=== PATIENT | female | born 1990 | race Hispanic/Latino ===

== ENCOUNTER 2020-06-28 10:48 | Inpatient (IN) | payer MEDICAID, OTHER ==
[2020-06-28] MEDS ORDERED: LIDOCAINE (2%) 20 MG/1 ML VIAL 20 ML MDV INFILTRATI NR (12:25)
[2020-06-28] MEDS ORDERED: TERBUTALINE 1 MG/1 ML INJ SUB-Q PRN (12:25)
[2020-06-28] MEDS ORDERED: CARBOPROST TROMETHAMINE 250 MCG/1 ML INJ IM PRN (12:25)
[2020-06-28] MEDS ORDERED: OXYTOCIN 10 UNIT/1 ML INJ IM PRN (12:25)
[2020-06-28] MEDS ORDERED: miSOPROStol 200 MCG TAB PR PRN (12:25)
[2020-06-28] MEDS ORDERED: ONDANSETRON 4 MG/2 ML INJ IV PRN (12:25)
[2020-06-28] MEDS ORDERED: NalbUPHINE 10 MG/1 ML INJ IV PRN ×2 (12:25→14:49)
[2020-06-28] MEDS ORDERED: METHYLERGONOVINE MALEATE 0.2 MG/ML VIAL IM PRN (12:25)
[2020-06-28] MEDS ORDERED: ACETAMINOPHEN 325 MG TAB PO PRN (12:25)
[2020-06-28] MEDS ORDERED: fentaNYL 100 MCG/2 ML INJ IV PRN (12:25)
[2020-06-28] MEDS ORDERED: ePHEDrine SULFATE 50 MG/1 ML INJ IV PRN ×2 (12:25→14:49)
[2020-06-28] MEDS ORDERED: LACTATED RINGERS 1,000 ML IV SCH (12:30)
--- NOTE | 2020-06-28 12:35 | History and Physical Report ---
History of Present Illness Date of examination: 06/28/20 (active labor @ 39w) Chief complaint: worsening ctx since 0430 this AM History of present illness: EDC Calculations LMP: 06/30/2020 EDC Confirmation: 06/30/2020 Gestational Age: 39w5d Past History : 2 Term Births: 0 Premature Births: 0 Living Children: 0 Para: 0 Mult. Births: 0 Prev : 0 Prev. attempt? 0 Aborta: 1 Elect. Ab: 0 Spont. Ab: 1 Ectopics: 0 # 1 Delivery date: 06/2019 Delivery type: SAB Risk Factors: Smoked Tobacco Use: Never smoker Smokeless Tobacco Use: Never Drug use: no HIV high-risk behavior: no Alcohol use: no Exercise: yes Times per week: land scaping Seatbelt use: preg-counsellors % Dietary Counseling: pn yes Past Medical History Abnormal PAP: negative NABEEL Exposure: negative Infertility: negative Uterine Anomaly: negative Uterine Surgery (not C/S): negative Other Gynecologic Problems: negative Social Hx: Patient is Smoking History: Patient has never smoked. Infection History Hx of STD: none HIV Risk Eval: no Hepatitis B Risk Eval: low risk Personal hx. of genital herpes: no Partner hx. of genital herpes: no Rash, Viral, or Febrile illness since last LMP? no TB Risk: no Genetic History Congenital Heart Defect: Mom: no Dad: no Lacy Disease: Mom: no Dad: no Thalassemia Mom: no Dad: no Neural Tube Defect Mom: no Dad: no Down's Syndrome Mom: no Dad: no Alfa-Sachs Mom: no Dad: no Sickle Cell Disease/Trait Mom: no Dad: no Hemophilia Mom: no Dad: no Muscular Dystrophy Mom: no Dad: no Cystic Fibrosis Mom: no Dad: no [place] Chorea Mom: no Dad: no Mental Retardation Mom: no Dad: no Fragile X Mom: no Dad: no Other Genetic/Chromosomal Disorder Mom: no Dad: no Child w/other defect Mom: no Dad: no Enviromental Exposures Xray Exposure: no Medication, drug, or alcohol use since LMP: no Chemical/Other Exposure: no Exposure to Cat Liter: no Hx of Parvovirus (Fifth Disease): no Occupational Exposure to Children: none Current Allergies (reviewed today): No known allergies Past History Past Surgical History: other (kidney donor) - Obstetrical History Expected Date of Delivery: 06/30/20 Actual Gestation: 39 Week(s) 5 Day(s) : 2 Para: 0 Hx # Term Pregnancies: 0 Number of Pregnancies: 0 Spontaneous Abortions: 1 Induced : 0 Number of Living Children: 0 Medications and Allergies Allergies Allergy/AdvReac Type Severity Reaction Status Date / Time No Known Allergies Allergy Unverified 07/22/13 06:46 Review of Systems All systems: negative - Vital Signs Vital signs: Vital Signs Temp Pulse Resp BP 98.2 F 96 H 16 120/78 06/28/20 11:56 06/28/20 11:56 06/28/20 11:56 06/28/20 11:56 Temp Pulse Resp BP Pulse Ox 98.2 F 96 H 16 120/78 06/28/20 11:56 06/28/20 11:59 06/28/20 11:56 06/28/20 11:59 - Physical Exam Breasts: Positive: deferred Cardiovascular: Regular rate, Normal S1, Normal S2 Lungs: Positive: Normal air movement Abdomen: Positive: normal appearance, soft, normal bowel sounds. Negative: distention, tenderness Genitourinary (Female): Positive: normal external genitalia Vulva: both: normal Vagina: Positive: normal moisture. Negative: discharge Cervix: Negative: lesion, discharge Uterus: Positive: normal size, normal contour Adnexa: both: normal Anus/Rectum: Positive: normal perianal skin, heme negative. Negative: rectal mass, hemorrhoids Extremities: Positive: normal Deep Tendon Reflex Grade: Normal +2 - Obstetrical FHR: category 1 Uterine Contraction Monitor Mode: External Cervical Dilatation: 5 (no palpable bag) Cervical Effacement Percentage: 90 station: -1 Uterine Contraction Pattern: Regular Uterine Tone Measurement Phase: Resting Uterine Contraction Intensity: Moderate Results All other labs normal. GBS Negative HBsAg Screen Negative Negative *1 RPR Non Reactive Non Reactive *2 Rubella Antibodies, IgG 3.79 index Immune >0.99 *3 Non-immune <0.90 Equivocal 0.90 - 0.99 Immune >0.99 ABO Grouping O *4 Rh Factor Positive *5 Please note: Prior records for this patient's ABO / Rh type are not available for additional verification. Antibody Screen Negative Negative *6 WBC 8.5 x10E3/uL 3.4-10.8 *7 RBC 4.49 x10E6/uL 3.77-5.28 *8 Hemoglobin 12.8 g/dL 11.1-15.9 *9 Hematocrit 39.7 % 34.0-46.6 *10 MCV 88 fL 79-97 *11 MCH 28.5 pg 26.6-33.0 *12 MCHC 32.2 g/dL 31.5-35.7 *13 RDW 13.1 % 11.7-15.4 *14 Platelets 245 x10E3/uL 150-450 *15 Neutrophils 72 % Not Estab. *16 Lymphs 20 % Not Estab. *17 Monocytes 6 % Not Estab. *18 Eos 1 % Not Estab. *19 Basos 0 % Not Estab. *20 ! Immature Cells <No Reported Value> *21 Neutrophils (Absolute) 6.2 x10E3/uL 1.4-7.0 *22 Lymphs (Absolute) 1.7 x10E3/uL 0.7-3.1 *23 Monocytes(Absolute) 0.5 x10E3/uL 0.1-0.9 *24 Eos (Absolute) 0.1 x10E3/uL 0.0-0.4 *25 Baso (Absolute) 0.0 x10E3/uL 0.0-0.2 *26 ! Immature Granulocytes 1 % Not Estab. *27 ! Immature Grans (Abs) 0.0 x10E3/uL 0.0-0.1 *28 ! NRBC <No Reported Value> *29 Hematology Comments: <No Reported Value> *30 Tests: (2) HIV Ag/Ab with Reflex (922500) HIV Screen 4th Generation wRfx Non Reactive Non Reactive *31 Tests: (3) HCV Ab w/Rflx to Verification ([id number]) ! HCV Ab <0.1 s/co ratio 0.0-0.9 *32 Tests: (4) Comment: ([id number]) ! Comment: [facility] *33 Non reactive HCV antibody screen is consistent with no HCV infection, unless recent infection is suspected or other evidence exists to indicate HCV infection. Tests: (5) Urine Culture, Routine ([id number]) Urine Culture, Routine Final report *34 Tests: (6) Result ([id number]) ! Result 1 No growth *35 Assessment and Plan 30yo @ 39w in active labor GBS Negative. Pt is a kidney donor to a family member. All orders in EMR
[2020-06-28] MEDS ORDERED: OXYTOCIN DRIP 30 UNITS/500 ML BAG IV SCH ×2 (13:00)
[2020-06-28 13:05] LABS: Hematocrit 36.6 % (30.3-42.9); Hemoglobin 12.6 gm/dl (10.1-14.3); Mean Corpuscular HGB Conc 35 % (30-34); Mean Corpuscular Volume 90 fl (79-97); Platelet Count 194 K/mm3 (140-440); Red Blood Count 4.09 M/mm3 (3.65-5.03)
[2020-06-28] MEDS ORDERED: NALOXONE 2 MG/2 ML INJ IV PRN (14:49)
[2020-06-28] MEDS ORDERED: diphenhydrAMINE 50 MG/ML VIAL IV PRN (14:49)
--- NOTE | 2020-06-28 14:52 | Anesthesia Consultation ---
Anesthesia Consult and Med Hx Date of service: 06/28/20 - Airway Anesthetic Teeth Evaluation: Good ROM Head & Neck: Adequate Mental/Hyoid Distance: Adequate Mallampati Class: Class I Intubation Access Assessment: Probably Good - Pulmonary Exam CTA: Yes - Cardiac Exam Cardiac Exam: RRR - Pre-Operative Health Status ASA Pre-Surgery Classification: ASA2 Proposed Anesthetic Plan: Epidural, Spinal - Pulmonary Hx Smoking: No Hx Asthma: No Hx Sleep Apnea: No - Cardiovascular System Hx Hypertension: No Hx Heart Attack/AMI: No Hx Angina: No - Central Nervous System Hx Seizures: No Hx Psychiatric Problems: No - Endocrine Hx Renal Disease: No Hx Insulin Dependent Diabetes: No Hx Non-Insulin Dependent Diabetes: No Hx Hypothyroidism: No Hx Hyperthyroidism: No - Hematic Hx Anemia: No Hx Sickle Cell Disease: No - Other Systems Hx Alcohol Use: No
--- NOTE | 2020-06-28 14:53 | Progress Note ---
Labor Epidural - Labor Epidural Start Time: 14:36 Stop Time: 14:45 Performed by:: BROWN BERNABE (Sunny Kabase SRNA) Procedure: Patient is requesting combined spinal epidural for labor and pain. H&P, labs were reviewed. All questions and concerns were answered. Informed consent was obtained. Timeout performed. Patient in sitting position on side of bed. Sterile prep and drape was performed. 3 mL 1% lidocaine skin wheal at L [3]-L [4]. 18-gauge Tuohy epidural needle advanced to [id number] using air technique, [6]. 27-gauge spinal needle advanced, positive free-flowing CSF. Spinal dose of [Marcaine 3.8mg]. Epidural catheter advanced to [12] cm. [negative] Aspiration, [negative] test dose. Sterile dressing applied. Patient tolerated procedure well.
[2020-06-28] MEDS ORDERED: fentaNYL-BUPIV 2 MCG/ML-0.125% 200 MCG/100 ML BAG EPIDURAL SCH (15:00)
--- NOTE | 2020-06-28 15:37 | Event Note ---
Date: 06/28/20 (comfortable with epidural) SVE 9,100,+1 Anticipate delivery
[2020-06-28] MEDS ORDERED: LANOLIN/ZINC/DIMETHICONE (LANSINOH) 7 GM TP PRN (17:00)
--- NOTE | 2020-06-28 17:06 | Procedure Note ---
OB Delivery Note - Delivery Date of Delivery: 06/28/20 Marketing Education Teacher: ROBE AWAN (Nadiya Galvan [facility]) Estimated blood loss: 300cc - Vaginal Delivery presentation: vertex Delivery position: OA Intrapartum events: none Delivery induction: none Delivery monitor: external FHT, external uterine Route of delivery: Delivery placenta: spontaneous Delivery cord: nuchal cord, 3 umbilical vessels Episiotomy: none Delivery laceration: 1st degree (no repair indicated) Anesthesia: epidural Delivery comments: KIET present. Counts correct X2 Live born Female over intact perineum OA. CAN X1 removed after delivery. Baby to Mom's abdomen skin to skin. Floppy cord clamped and cut. Baby passed to waiting NICU team. Cord blood obtained. Pit IVFs. Placenta delivered complete and intact. 3 vessel cord. Small first degree laceration noted, no repair indicated. Apgars 7/9, EBL 300, Wgt 7-0. Mom and baby remain LDR stable. - A at 1 minute: 7 at 5 minutes: 9 Gender: Female (Wgt 7-0 Shayy)
[2020-06-28] MEDS ORDERED: WITCH HAZEL/ GLYCERIN PAD TP PRN (17:30)
[2020-06-28] MEDS ORDERED: PROMETHAZINE 25 MG TAB PO PRN (17:30)
[2020-06-28] MEDS ORDERED: diphenhydrAMINE 25 MG CAP PO PRN (17:30)
[2020-06-28] MEDS ORDERED: MAGNESIUM HYDROXIDE (MOM) ORAL LIQD UDC PO PRN (22:00)
[2020-06-29] MEDS: IBUPROFEN 600 MG TAB PO SCH ×2 (05:15)
[2020-06-29 06:37] LABS: Hemoglobin 10.6 gm/dl (10.1-14.3)
--- NOTE | 2020-06-29 08:03 | Discharge Summary ---
Providers - Providers Date of Admission: 06/28/20 13:19 Date of discharge: 06/29/20 (Patient desires discharge) Attending physician: PATRICIA DOE Primary care physician: PATRICIA DOE Hospitalization Reason for admission: Labor Condition: Good Pertinent studies: Post H&H 10.6/31.0 Procedures: Hospital course: Uncomplicated Vaginal and course Disposition: DC-01 TO HOME OR SELFCARE - Discharge Diagnoses (1) Normal spontaneous vaginal delivery Status: Acute Core Measure Documentation - Palliative Care Palliative Care/ Comfort Measures: Not Applicable - Core Measures Any of the following diagnoses?: none Exam - Constitutional Vitals: Temp Pulse Resp BP Pulse Ox 98.9 F 73 16 96/59 99 06/29/20 00:25 06/29/20 00:25 06/29/20 05:15 06/29/20 00:25 06/29/20 00:25 General appearance: Present: no acute distress, well-nourished - EENT Eyes: Present: PERRL ENT: hearing intact, clear oral mucosa - Neck Neck: Present: supple, normal ROM - Respiratory Respiratory effort: normal Respiratory: bilateral: CTA - Cardiovascular Rhythm: regular - Extremities Extremities: No edema - Abdominal General gastrointestinal: Present: soft, non-tender, non-distended, normal bowel sounds Female genitourinary: Present: normal - Integumentary Integumentary: Present: clear, warm, dry - Musculoskeletal Musculoskeletal: gait normal, strength equal bilaterally - Psychiatric Psychiatric: appropriate mood/affect, intact judgment & insight - Neurologic Neurologic: CNII-XII intact, moves all extremities - Additional findings Additional findings: Fundus firm, lochia scant, . Plan Activity: no restrictions Diet: regular Follow up with: PATRICIA DOE MD [Primary Care Provider] - 07/27/20 (Congratulations! Please call [phone] to schedule post visit. Call for any questions and concerns.)
[2020-06-29] MEDS ORDERED: DIPHtheria,PERTUSSIS(ACELL),TETANUS VACCINE/PF 0.5 ML VIAL IM ONE (09:00)
--- NOTE | 2020-06-29 09:23 | Post Anesthesia Evaluation ---
- Post Anesthesia Evaluation Patient Participated: Yes Airway Patent: Yes Stable Respiratory Function: Yes Nausea/Vomiting: No Temp > 96.8F: Yes Pain Manageable: Yes Adequeate Hydration: Yes Anesthesia Complications: No Block Receding Appropriately: Yes Patient on Ventilator: No
[2020-06-29] MEDS ORDERED: MEASLES, MUMPS & RUBELLA 12,500 UNIT/0.5 ML VACCINE SUB-Q ONE (12:00)
[2020-06-29 18:54] VITALS: BP 118/82
== END 2020-06-29 18:58 | disposition home or self-care (01) | DRG 775 ==
LOC: TRG 10:48 → APU 10:49 → TRG 13:16 → LD 13:19 → OB 19:36
PROVIDERS: ADMIT Obstetrics & Gynecology; ATTEND Obstetrics & Gynecology
PROC: 10E0XZZ Delivery of Products of Conception, External Approach (ICD-10-PCS; principal; 2020-06-28)
PROC: 3E0R3BZ Introduction of Anesthetic Agent into Spinal Canal, Percutaneous Approach (ICD-10-PCS; 2020-06-28)
PROC: 00HU33Z Insertion of Infusion Device into Spinal Canal, Percutaneous Approach (ICD-10-PCS; 2020-06-28)
PROC: 3E0234Z Introduction of Serum, Toxoid and Vaccine into Muscle, Percutaneous Approach (ICD-10-PCS; 2020-06-29)
DX: O69.81X0 Labor and delivery complicated by cord around neck, without compression, not applicable or unspecified (principal); Z3A.39 39 weeks gestation of pregnancy; Z37.0 Single live birth; Z20.822 Contact with and (suspected) exposure to COVID-19; Z23 Encounter for immunization; Z52.4 Kidney donor; O70.0 First degree perineal laceration during delivery
CPT/HCPCS: 36415; 85014; 85018; 85027; 86592; 86850; 86900; 86901; G0378; J3010; U0003

== ENCOUNTER 2021-05-30 10:30 | Day surgery (SDC) | payer MEDICAID ==
[2021-05-30] MEDS ORDERED: LACTATED RINGERS 1,000 ML ONE (12:06)
[2021-05-30] MEDS ORDERED: HYDROmorphone 1 MG/1 ML INJ IV PRN ×2 (12:47→13:00)
[2021-05-30] MEDS ORDERED: ONDANSETRON 4 MG/2 ML INJ IV PRN (12:47)
--- NOTE | 2021-05-30 12:48 | Anesthesia Day of Surgery ---
Anesthesia Day of Surgery - Day of Surgery Patient Examined: Yes Patient H&P Reviewed: Yes Patient is NPO: Yes
--- NOTE | 2021-05-30 12:49 | Anesthesia Consultation ---
Anesthesia Consult and Med Hx Date of service: 05/30/21 - Airway Anesthetic Teeth Evaluation: Caps (Bonding) ROM Head & Neck: Adequate Mental/Hyoid Distance: Adequate Mallampati Class: Class II Intubation Access Assessment: Good - Pre-Operative Health Status ASA Pre-Surgery Classification: ASA1 Proposed Anesthetic Plan: General - Pulmonary Hx Smoking: No Hx Asthma: No Hx Sleep Apnea: No - Cardiovascular System Hx Hypertension: No Hx Heart Attack/AMI: No Hx Angina: No - Central Nervous System Hx Seizures: No Hx Psychiatric Problems: No - Endocrine Hx Renal Disease: No (Donated one kidney 2013) Hx Insulin Dependent Diabetes: No Hx Non-Insulin Dependent Diabetes: No Hx Hypothyroidism: No Hx Hyperthyroidism: No - Hematic Hx Anemia: No Hx Sickle Cell Disease: No - Other Systems Hx Alcohol Use: Yes (Occas) Hx Cancer: No
--- NOTE | 2021-05-30 12:59 | History and Physical Report ---
History of Present Illness Date of examination: 05/30/21 Date of admission: 05/30/2021 Chief complaint: Here for D&C History of present illness: Patient is a presenting for D&C secondary to retained products of conception. History remains unchanged from office visit. See below Patient presents for evaluation s/p SAB. Notes she was seen in the office on Saturday for U/S following vaginal spotting. No heart tones were noted on scan so she believed it was a miscarriage. Notes bleeding increased with cramping that evening and around 8 pm she was bleeding very heavily using more than 1 pad an hour. Was taken to [place] ED by paramedics for evaluation. Patient states they did bloodwork, but no ultrasound. Was told based on her symptoms she had likely passed everything and was sent home Saturday morning, Notes Saturday evening her bleeding increased again so she left a voicemail on office line. Provider called her back and made this appointment. Patient notes continued bleeding, but had an episode fo heavy bleeding and cramping in the shower. Notes passage of tissue that landed on shower floor and did not dissolve like a blood clot. Bleeding has decreased since then. Denies current lightheadedness or dizziness. 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 of genital herpes: no Partner hx. 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 Risk Factors: Smoked Tobacco Use: Never smoker Smokeless Tobacco Use: Never Passive Smoke Exposure: no HIV High Risk Behavior: no Exercise: no Seatbelt Use: 100 % Alcohol Use: no Drug Use: no Past History Past Medical History: no pertinent history Past Surgical History: other (kidney removal for donation ) Family/Genetic History: other (renal disease) Social history: no significant social history - Obstetrical History : 3 Para: 1 Spontaneous Abortions: 1 Number of Living Children: 1 Medications and Allergies Allergies Allergy/AdvReac Type Severity Reaction Status Date / Time No Known Allergies Allergy Unverified 05/29/21 15:41 Home Medications Medication Instructions Recorded Confirmed Last Taken Type 168/Iron/Folic/Omega3 1 each PO DAILY 05/29/21 05/29/21 Unknown History [One-A-Day -1 Softgel] Active Meds: Active Medications Hydromorphone HCl (Hydromorphone 1 Mg/1 Ml Inj) 0.25 mg IV Q10MIN PRN PRN Reason: Pain, Moderate (4-6) Hydromorphone HCl (Hydromorphone 1 Mg/1 Ml Inj) 0.5 mg IV Q10MIN PRN PRN Reason: Pain , Severe (7-10) Stop: 05/30/21 23:00 Lactated Ringer's (Lactated Ringers) 1,000 mls @ 125 mls/hr IV DIRECT CAITLYN Cefazolin Sodium (Ancef/Sterile Water 2 Gm/20 Ml) 2 gm in 20 mls @ 80 mls/hr IV PREOP NR; Protocol Stop: 05/30/21 20:00 Midazolam HCl (Midazolam 2 Mg/2 Ml Inj) 2 mg IV PREOP NR Stop: 05/30/21 23:59 Ondansetron HCl (Ondansetron 4 Mg/2 Ml Inj) 4 mg IV ONCE PRN PRN Reason: Nausea And Vomiting Review of Systems Genitourinary: vaginal bleeding - Physical Exam Cardiovascular: Regular rate, Normal S1, Normal S2 Lungs: Positive: Normal air movement Abdomen: Positive: normal appearance, soft Extremities: Results All other labs normal. Assessment and Plan Patient s/p SAB No pole or GS noted on previous sono. Possible retained POC vs blood products. Exam in office with minimal blood Reviewed options for management including medical managment with methergine vers us surgical managment with D&C. Patient desires surgical management. Risks of procedure reviewed including pain, bleeding, infection, uterine perforation, damage to surrounding tissues and structures, and need for other procedures. Procedure and blood consents signed. To OR for suction D&C - Patient Problems (1) Incomplete Current Visit: Yes Status: Acute
[2021-05-30] MEDS ORDERED: ceFAZolin/Water 2 GM/20 ML 2 GM/20 ML SYRINGE IV NR (13:00)
[2021-05-30] MEDS ORDERED: LACTATED RINGERS 1,000 ML IV SCH (13:00)
[2021-05-30] MEDS ORDERED: MIDAZOLAM 2 MG/2 ML INJ IV NR (13:00)
[2021-05-30] MEDS ORDERED: propofoL 200 MG/20 ML VIAL IV ONE (13:35)
[2021-05-30] MEDS ORDERED: fentaNYL 100 MCG/2 ML INJ ONE (13:36)
[2021-05-30] MEDS ORDERED: LIDOCAINE PF 100 MG/5 ML (CARDIAC SYRINGE) IV ONE (13:36)
[2021-05-30] MEDS ORDERED: METHYLERGONOVINE MALEATE 0.2 MG/ML VIAL IM ONE (13:39)
[2021-05-30] MEDS ORDERED: SILVER NITRATE APPLICATOR 1 EA TP ONE (13:39)
[2021-05-30] MEDS ORDERED: MIDAZOLAM 2 MG/2 ML INJ ONE (13:55)
[2021-05-30] MEDS ORDERED: SODIUM CHLORIDE 0.9% IRR 1,500 ML BOTTLE IR ONE (14:15)
[2021-05-30] MEDS ORDERED: ONDANSETRON 4 MG/2 ML INJ ONE (14:17)
--- NOTE | 2021-05-30 14:24 | Post Operative Note ---
Pre-op diagnosis: incomplete Post-op diagnosis: same Findings: EUA: 6 week sized uterus; No palpable adnexal masses noted Procedure: Exam under anesthesia, suction dilation and curettage Anesthesia: GETA Surgeon: LORENA MOLINA Estimated blood loss: 50-100ml Pathology: list (POC) Specimen disposition: to lab Condition: stable Disposition: PACU
--- NOTE | 2021-05-30 14:25 | Operative Report ---
Operative Report Operative Report: Procedure: Dilation and curettage Pre-operative Diagnosis: incomplete Post-operative Diagnosis: same Surgeon: Alley Spence Anesthesia: GETA Procedure Details Consent was obtained after explaining the risks and benefits of the procedure as documented. Patient was taken to the OR. The patient was then placed in dorsal lithotomy position, and prepped and draped in the usual sterile manner. The examination under anesthesia revealed a 6 week sized uterus. A sterile speculum was then inserted into the patient's vagina. A single tooth tenaculum was then placed on the anterior lip of the cervix. The cervix was visibly dilated. A size 7 mm suction catheter was then inserted. The contents of the uterus were emptied under electrical suction. A sharp curettage was then performed with gritty texture noted. A final pass of the suction catheter was then done. The instruments were removed from the patient's vagina and excellent hemostasis was noted. The patient tolerated the procedure well and was brought to the recovery room in stable condition. Findings: Exam under anesthesia: 6 week sized uterus, no palpable adnexal masses noted Dilation and curettage: Product of conception Estimated Blood Loss: 50 ml Drains: None Total IV Fluids: LR 600 ml Specimens: Product of conception Implants: None Complications: None; patient tolerated the procedure well. Disposition: PACU - hemodynamically stable. Condition: stable
--- NOTE | 2021-05-30 14:35 | Discharge Summary ---
Providers - Providers Date of Admission: 05/30/2021 Date of discharge: 05/30/21 Attending physician: LORENA MOLINA MD Primary care physician: INVESTIGATIVE ANALYST Hospitalization Reason for admission: incomplete Condition: Fair Procedures: Suction dilation and curettage Hospital course: Patient to OR for suction D&C. See operative report for additional details. O+ blood type. Rhogam not indicated. Disposition: HOME / SELF CARE / HOMELESS Final Discharge Diagnosis (Prints w/discharge instructions): incomplete s/p dilation and curettage - Discharge Diagnoses (1) Incomplete Status: Acute (2) S/P dilation and curettage Status: Acute Core Measure Documentation - Palliative Care Palliative Care/ Comfort Measures: Not Applicable - Core Measures Any of the following diagnoses?: none Exam - Constitutional Vitals: Temp Pulse Resp BP Pulse Ox 98.5 F 88 20 116/71 100 05/30/21 12:30 05/30/21 12:30 05/30/21 12:30 05/30/21 12:30 05/30/21 12:30 General appearance: Present: no acute distress - Cardiovascular Rhythm: regular Heart Sounds: Present: S1 & S2 - Extremities Extremities: pulses symmetrical, No edema - Abdominal General gastrointestinal: Present: soft Plan Activity: other (Pelvic rest for 4 weeks. No tampons, sex, or tub baths. ) Weight Bearing Status: Full Weight Bearing Plan of Treatment: [] Smoking cessation referral if applicable(refer to patient education folder for contact #) [] Refer to [facility]'s [facility] Booklet Call your doctor immediately for: * Fever > 100.5 * Heavy vaginal bleeding ( >1 pad per hour) * Severe persistent headache * Shortness of breath * Reddened, hot, painful area to leg or breast * Drainage or odor from incision. Take methergine every 8 hours for first 24 hours to help uterus remain contracted and decrease vaginal bleeding Take Tylenol #3 as needed for pain. Follow up with: LORENA MOLINA MD [Staff Physician] - 7 Days Prescriptions: Methylergonovine [Methergine] 0.2 mg PO Q8HR #3 tablet Acetaminophen/Codeine [Tylenol /Codeine # 3 tab] 1 tab PO Q6H PRN #12 tab PRN Reason: Pain, Moderate (4-6)
--- NOTE | 2021-05-30 14:51 | Post Anesthesia Evaluation ---
- Post Anesthesia Evaluation Patient Participated: Yes Airway Patent: Yes Stable Respiratory Function: Yes Nausea/Vomiting: No Temp > 96.8F: Yes Pain Manageable: Yes Adequeate Hydration: Yes Anesthesia Complications: No Block Receding Appropriately: Not Applicable Patient on Ventilator: No
[2021-05-30 17:55] VITALS: BP 111/61
== END 2021-05-30 10:31 | disposition home or self-care (01) ==
LOC: OR 10:30
PROVIDERS: ATTEND Student in an Organized Health Care Education/Training Program
DX: O03.4 Incomplete spontaneous abortion without complication (principal); N93.8 Other specified abnormal uterine and vaginal bleeding; Z79.899 Other long term (current) drug therapy; Z72.89 Other problems related to lifestyle; Z98.890 Other specified postprocedural states; Z20.822 Contact with and (suspected) exposure to COVID-19
CPT/HCPCS: 59812; 88305; J0690; J2001; J2210; J2250; J2405; J2704; J3010; J7120; U0003